=== PATIENT | female | born 1985 | race Caucasian/White ===

== ENCOUNTER 2017-07-12 00:09 | Emergency (ER) | payer MEDICAID ==
[~2017-07-12] VITALS: Ht 162.6 cm; Wt 83.0 kg
[2017-07-12 00:30] VITALS: BP 127/88
== END 2017-07-12 02:36 | disposition left against medical advice (07) ==
LOC: ER 00:09
DX: R20.2 Paresthesia of skin (principal); Z53.21 Procedure and treatment not carried out due to patient leaving prior to being seen by health care provider

== ENCOUNTER 2021-10-23 23:17 | Emergency (ER) | payer MEDICAID ==
[~2021-10-23] VITALS: Ht 165.1 cm; Wt 83.6 kg
[2021-10-23 23:26] VITALS: BP 133/88
== END 2021-10-24 02:13 | disposition home or self-care (01) ==
LOC: ER 23:17
DX: S92.512A Displaced fracture of proximal phalanx of left lesser toe(s), initial encounter for closed fracture (principal); S09.8XXA Other specified injuries of head, initial encounter; M54.2 Cervicalgia; W18.49XA Other slipping, tripping and stumbling without falling, initial encounter; Y93.E1 Activity, personal bathing and showering; Y92.012 Bathroom of single-family (private) house as the place of occurrence of the external cause
CPT/HCPCS: 73630; 81025; 99283; Z7610

== ENCOUNTER 2022-05-21 16:07 | Emergency (ER) | payer MEDICAID ==
[~2022-05-21] VITALS: Ht 165.1 cm; Wt 91.0 kg
[2022-05-21 16:44] VITALS: BP 133/87
[2022-05-21] MEDS ORDERED: TETANUS, DIPHTHERIA, PERTUSSIS VAC/PF 0.5ML (>10YR OLD) IM ONE (17:00)
[2022-05-21] MEDS ORDERED: BACITRACIN ZINC OINT UDPKT TOP ONE (17:00)
[2022-05-21] MEDS ORDERED: LIDOCAINE HCL/PF 1% 10 MG/ML 5ML VIAL INFIL ONE (17:00)
[2022-05-21] MEDS ORDERED: AMOXICILLIN/POTASSIUM CLAVULANATE 875/125MG TAB PO ONE (17:15)
[2022-05-21] MEDS ORDERED: IBUP-2029 PO (18:03)
[2022-05-21] MEDS ORDERED: AMOX1TAB16 PO (18:03)
== END 2022-05-21 18:15 | disposition home or self-care (01) ==
LOC: ER 16:07
DX: S51.812A Laceration without foreign body of left forearm, initial encounter (principal); W54.0XXA Bitten by dog, initial encounter; Y93.89 Activity, other specified; Y92.89 Other specified places as the place of occurrence of the external cause; Y99.8 Other external cause status
CPT/HCPCS: 12002; 73090; 90471; 90715; 99283; J3490; Z7610